=== PATIENT | female | born 2000 | race Caucasian/White ===

== ENCOUNTER 2021-09-23 09:24 | Outpatient (CLI) | payer BC, SELFPAY ==
--- NOTE | 2021-09-23 | ECG_ITS ---
Measurements Intervals [place] Rate: 67 P: 15 TX: 126 QRS: 35 QRSD: 80 T: 44 QT: 384 QTc: 408 Interpretive Statements SINUS RHYTHM WITH SINUS ARRHYTHMIA INCOMPLETE RIGHT BUNDLE BRANCH BLOCK BORDERLINE ECG Electronically Signed On 09-23-2021 10:43:33 CAR LUBRICATOR by Tiago Almendarez D.O.
--- NOTE | 2021-09-23 | ECHO_ITS ---
[facility] Age[facility] 21 years : 2000 Gender: Female Ht: 62 in Wt: 134 lbs BSA: 1.64 m2 HR: 79 bpm BP: 114 / 80 mmHg Heart Rhythm: Sinus Rhythm Exam Date: 09/23/2021 9:57 AM Exam Location: [facility] Patient Status: Outpatient Admit Date: 09/23/2021 Staff Ordering Physician: SantyAna MD Customer Service Correspondence Clerk: Romero Stuart, MICHA, RT Attending Provider: Colby, Ana Littlejohn MD Referring Physician: Santy ARREOLA; Exam Type: CA echo doppler color flow Study Info Indications R07.9 - Chest pain, unspecified Complete two-dimensional, color flow and Doppler transthoracic echocardiogram is performed. Strain analysis performed. Summary 1. Complete two-dimensional, color flow and Doppler transthoracic echocardiogram is performed. 2. Left ventricular chamber size, wall thickness, systolic and diastolic function are normal with no regional wall motion abnormalities with an estimated ejection fraction of 55-60%. 3. Global longitudinal strain is also normal at -19%. 4. No significant valve disease. 5. Normal estimated pulmonary artery pressure. 6. Normal sinus rhythm. Left Ventricle Left ventricular chamber dimension is normal. Left ventricular systolic function is normal, estimated at 55-60%. There is no increased left ventricular wall thickness. Left ventricular septal wall motion is normal. The left ventricular diastolic function is normal. Global longitudinal strain is normal at -19 %. Left ventricular chamber size, wall thickness, systolic and diastolic function are normal with no regional wall motion abnormalities with an estimated ejection fraction of 55-60%. Right Ventricle Right ventricular chamber dimension is normal. Right ventricular systolic function is normal. Left Atria Left atrial chamber dimension is normal. Right Atria Right atrial chamber dimension is normal. Aortic Valve The aortic valve is trileaflet. There is no aortic valve sclerosis. There is no aortic valve stenosis. There is no aortic valve regurgitation. Pulmonic Valve The pulmonic valve is normal. There is no pulmonic valve stenosis. There is no pulmonic regurgitation. Mitral Valve The mitral valve has normal leaflets. There is no mitral valve stenosis. There is no mitral valve regurgitation. Tricuspid Valve The tricuspid valve leaflets are normal. There is no significant tricuspid valve stenosis. There is trace tricuspid valve regurgitation. No pulmonary hypertension, estimated pulmonary arterial systolic pressure is Empty. Pericardium/Pleural The pericardium appears normal. There is no pericardial effusion. Inferior Vena Cava Normal inferior vena cava with >50% collapse upon inspiration consistent with Empty right atrial pressure, 5 mmHg. Aorta The aortic root size at the sinus of Valsalva is normal. The prox ascending aorta size is normal. Left Ventricular Outflow Tract Name Value Normal LVOT 2D LVOT Diameter 2.0 cm LVOT Doppler LVOT Peak Gradient 3 mmHg LVOT Mean Gradient 2 mmHg
== END 2021-09-23 09:25 | disposition home or self-care (01) ==
PROVIDERS: PCP Pediatrics; Visit Provider Internal Medicine
DX: R07.9 Chest pain, unspecified (principal)
CPT/HCPCS: 93005; 93306

== ENCOUNTER 2021-09-30 17:45 | Emergency (ER) | payer BC, SELFPAY ==
[2021-09-30 18:19] VITALS: BP 117/61; PULSE 107; RESP 18; TEMP 37.1; O2SAT 100
--- NOTE | 2021-09-30 19:00 | ED.GENADULT ---
HPI - General Adult General Chief complaint: Upper Respiratory Infection Stated complaint: sorethroat,head congestion,cough Source: patient Mode of arrival: ambulatory Limitations: no limitations History of Present Illness HPI narrative: Patient is a 21-year-old female presents to urgent care via POV for evaluation of upper respiratory symptoms that have been present for approximately 5 days. Additionally, she reports sore throat, sneezing, nonproductive, dry cough, headache, and myalgias. Tylenol improves symptoms. Laying down worsens symptoms. Patient is not vaccinated against Covid or influenza. She denies known exposure to sick contacts. Related Data Home Medications Medication Instructions Recorded Confirmed norgestimate-ethinyl estradiol 1 tablet DAILY 09/30/21 09/30/21 [Sprintec (28)] Allergies Allergy/AdvReac Type Severity Reaction Status Date / Time amoxicillin [From Augmentin] AdvReac Diarrhea Verified 09/30/21 18:40 clavulanic acid AdvReac Diarrhea Verified 09/30/21 18:40 [From Augmentin] Review of Systems Review of Systems: Denies fever, chills, sweats, change in appetite, poor p.o. intake, dizziness, syncope, LOC, sinus pain, sinus pressure, ear pain, drooling, difficulty swallowing, abdominal pain, nausea, vomiting, diarrhea, shortness of breath, wheezing, cyanosis, chest pain, heart palpitations PMFSH Comments I have reviewed and agree with the patient's past medical, surgical, social, and family hx as documented by the RN. There is no relevant family history pertinent to the presenting complaint. Exam Narrative: GENERAL: Well-appearing, well-nourished, and in no acute distress. HEAD: Normocephalic, atraumatic. No sinus tenderness or facial swelling appreciated. EYES: PERRLA and EOMI. No evidence of erythema, swelling, or drainage. ENT: Bilateral external ears and ear canals normal. Bilateral TMs are normal.No TM perforation. Nares clear, no rhinorrhea or epistaxis. Bilateral turbinates are mildly edematous. Mucous membranes moist and pink. Uvula is midline without erythema and swelling. Posterior pharynx is mildly erythematous otherwise normal. Breath odor and voice normal. NECK: Supple. No Lymphadenopathy or nuchal rigidity appreciated. CHEST: Bilateral lung uriarte are clear to auscultation. No respiratory distress. No evidence of cough or pleuritic cp upon examination. HEART: Tachycardia with a rate of 107. Regular rhythm. No murmur, gallop, or rub heard. EXTREMITIES: Normal range of motion. No edema. SKIN: Warm, dry, no rash. NEURO: No focal deficits. Alert and oriented x3. Course Vital Signs Vital signs: Vital Signs Temperature 98.7 F 09/30/21 18:19 Pulse Rate 107 H 09/30/21 18:19 Respiratory Rate 18 09/30/21 18:19 Blood Pressure 117/61 09/30/21 18:19 Pulse Oximetry 100 09/30/21 18:19 Temperature 98.7 F 09/30/21 18:19 Pulse Rate 107 H 09/30/21 18:19 Respiratory Rate 18 09/30/21 18:19 Blood Pressure 117/61 09/30/21 18:19 Pulse Oximetry 100 09/30/21 18:19 Medical Decision Making Differential Diagnosis Differential Diagnosis: Allergic rhinitis, ABRS, acute viral sinusitis, strep pharyngitis, nasopharyngitis, bronchitis, pneumonia, AOM, otitis externa, viral URI, influenza, covid-19 Medical Records Medical records reviewed: Yes I reviewed the external patient's medical records. Vital Signs Vital Signs: Vital Signs Temperature 98.7 F 09/30/21 18:19 Pulse Rate 107 H 09/30/21 18:19 Respiratory Rate 18 09/30/21 18:19 Blood Pressure 117/61 09/30/21 18:19 Pulse Oximetry 100 09/30/21 18:19 Temperature 98.7 F 09/30/21 18:19 Pulse Rate 107 H 09/30/21 18:19 Respiratory Rate 18 09/30/21 18:19 Blood Pressure 117/61 09/30/21 18:19 Pulse Oximetry 100 09/30/21 18:19 Reviewed Lab Data Lab results reviewed: Yes I reviewed the patient's lab results. Lab results narrative: Influenza test negative, rap
== END 2021-09-30 19:28 | disposition home or self-care (01) ==
PROVIDERS: Emergency Provider Nurse Practitioner Family; PCP Internal Medicine
DX: J06.9 Acute upper respiratory infection, unspecified (principal); Z20.822 Contact with and (suspected) exposure to COVID-19
CPT/HCPCS: 87426; 87804; 99213; C9803; G0463

== ENCOUNTER 2021-10-05 08:45 | Emergency (ER) | payer BC, SELFPAY ==
--- NOTE | ~2021-10-05 | XR_ITS ---
EXAMINATION: XR chest 2V DATE: 10/05/2021 09:25 INDICATION: Congestion. TECHNIQUE: Frontal and lateral views of the chest were obtained. COMPARISON: None. FINDINGS: There are airspace opacities in the lower lung zones. No pleural effusion or pneumothorax. The heart size is normal. IMPRESSION: 1. Airspace opacities in the lower lung zones, consistent with atelectasis versus pneumonia. Reviewed, dictated and finalized at location A. INE BOBBIN WINDER IMPRESSION: 1. Airspace opacities in the lower lung zones, consistent with atelectasis vers us pneumonia.
[2021-10-05 08:59] VITALS: BP 119/72; PULSE 96; RESP 16; TEMP 36.9; O2SAT 98
--- NOTE | 2021-10-05 09:08 | ED.URI ---
HPI - URI/Sore Throat General Chief Complaint: Upper Respiratory Infection Stated Complaint: Congestion Time Seen by Provider: 10/05/21 09:08 Source: patient, RN notes reviewed and old records reviewed Mode of arrival: ambulatory Limitations: no limitations Related Data Home Medications Medication Instructions Recorded Confirmed norgestimate-ethinyl estradiol 1 tablet DAILY 09/30/21 10/05/21 [Sprintec (28)] Allergies Allergy/AdvReac Type Severity Reaction Status Date / Time amoxicillin [From Augmentin] AdvReac Diarrhea Verified 10/05/21 09:14 clavulanic acid AdvReac Diarrhea Verified 10/05/21 09:14 [From Augmentin] Review of Systems Review of Systems: All systems reviewed & are unremarkable except as noted in HPI and below Constitutional: Constitutional: Reports as per HPI, Denies chills, Reports fatigue and Denies fever(s) Eyes: Eyes: Reports no additional eye complaints ENT: Reports as per HPI, Denies nasal congestion and Reports sore throat Cardiovascular: Cardiovascular: Reports no additional cardiovascular complaints, Denies chest pain, Denies rapid heart rate, Denies radiating jaw, neck or arm pain and Denies slow heart rate Respiratory: Respiratory: Reports as per HPI, Denies chest congestion, Reports cough, Denies dyspnea and Denies wheezing Gastrointestinal: Gastrointestinal: Reports no additional gastrointestinal complaints, Denies abdominal pain, Denies nausea and Denies vomiting Musculoskeletal: Musculoskeletal: Reports no additional musculoskeletal complaints Integumentary/Breasts: Skin/Breast: Reports system reviewed and no additional complaints, except as docu Neurologic: Reports system reviewed and no additional complaints, except as documented Psychiatric: Psychiatric: Reports no additional psychiatric complaints Allergic/Immunologic: Allergic/Immunologic: Reports no additional allergic/immunologic complaints [facility] Past Medical History Medical History (Updated 10/05/21 @ 09:45 by Tracy Tubbs) Patient denies medical problems Surgical History Surgical History (Updated 10/05/21 @ 09:13 by Tracy Tubbs) No significant past surgical history Social History Social History (Updated 10/05/21 @ 09:14 by Tracy Tubbs) Gender identity (if verbalized by the patient): Female Comments At the time of my signature, I reviewed and agree with the nursing past medical, surgical, social, and family history. There is no relevant family history pertinent to the patient complaint. Exam Const: General: healthy appearing, no acute distress and alert Nutritional Appearance: well nourished Orientation/consciousness: patient oriented x3 Limitations: no limitations HENMT: Head: normal to inspection Eyes: Conjunctivae: conjunctivae normal Pupils: Equal, round and reactive pupils present Neck: Neck: normal visual inspection, no lymphadenopathy and no meningeal signs Chest: Chest palpation & inspection: normal inspection of the chest Resp: Effort & Inspection: normal respiratory effort Auscultation: diminished lung sounds bilateral in the lower lung uriarte Cardio: Rate: regular rate Rhythm: regular rhythm Back/Spine/Pelvis: Back: no CVA tenderness Skin: General skin exam: normal color Rashes: no rashes Wounds: no wounds Neuro: General: patient oriented x3, moves all extremities, no meningeal signs and no focal motor deficits Speech: normal speech Gait exam (Neuro): Normal gait present Extrem: General: normal to inspection Psych: Appearance: grossly normal and well kempt Mental Status: mental status grossly normal Affect: normal affect Attitude: cooperative Thought content: Yes Normal thought content present Course Course Emergency Course: Discharge instructions reviewed with patient, as well as provided in writing per nursing staff. The instructions also include specific and strict return/GO TO THE ER as well as f/u information. All questions have been answere
== END 2021-10-05 09:50 | disposition home or self-care (01) ==
PROVIDERS: Emergency Provider Nurse Practitioner; PCP Internal Medicine
DX: J18.1 Lobar pneumonia, unspecified organism (principal)
CPT/HCPCS: 71046; 99213; G0463

== ENCOUNTER 2022-10-28 17:13 | Emergency (ER) | payer BC, SELFPAY ==
--- NOTE | 2022-10-28 17:17 | ED.GENADULT ---
HPI - General Adult General Chief complaint: Abdominal Pain Stated complaint: abdominal pain Time Seen by Provider: 10/28/22 17:20 Source: patient, RN notes reviewed and old records reviewed Mode of arrival: ambulatory Limitations: no limitations History of Present Illness HPI narrative: 22-year-old female presents to the [facility] with complaints of abdominal pain. Patient reports that 2 days ago started with generalized abdominal pain, has localized to the suprapubic, right lower quadrant, periumbilical. Denies fevers. Has had nausea and vomited 1 time today. Denies fevers and diarrhea. denies urinary symptoms no treatment prior to arrival no CVA tenderness MD complaint: abdominal pain Onset (ago): day(s) (2) Related Data Home Medications Medication Instructions Recorded Confirmed norgestimate 0.25 mg-ethinyl 1 tablet DAILY 09/30/21 10/05/21 estradiol 35 mcg tablet (Sprintec (28)) Allergies Allergy/AdvReac Type Severity Reaction Status Date / Time amoxicillin [From Augmentin] AdvReac Diarrhea Verified 10/05/21 09:14 clavulanic acid AdvReac Diarrhea Verified 10/05/21 09:14 [From Augmentin] Review of Systems Review of Systems: All systems reviewed & are unremarkable except as noted in HPI and below Constitutional: Constitutional: Reports no additional constitutional complaints Eyes: Eyes: Reports no additional eye complaints ENT: Reports system reviewed and no additional complaints, except as documented Cardiovascular: Cardiovascular: Reports no additional cardiovascular complaints, Denies chest pain and Denies dyspnea Respiratory: Respiratory: Reports no additional respiratory complaints, Denies chest congestion, Denies cough and Denies dyspnea Gastrointestinal: Gastrointestinal: Reports as per HPI, Reports abdominal pain, Denies diarrhea, Reports nausea and Reports vomiting Genitourinary: Genitourinary: Reports no additional female genitourinary complaints, Denies dysuria, Denies pelvic pain and Denies flank pain Musculoskeletal: Musculoskeletal: Reports no additional musculoskeletal complaints Integumentary/Breasts: Skin/Breast: Reports system reviewed and no additional complaints, except as docu Neurologic: Reports system reviewed and no additional complaints, except as documented Psychiatric: Psychiatric: Reports no additional psychiatric complaints Allergic/Immunologic: Allergic/Immunologic: Reports no additional allergic/immunologic complaints PMFSH Past Medical History Medical History Patient denies medical problems Surgical History Surgical History No significant past surgical history Social History Social History Gender identity (if verbalized by the patient): Female Comments At the time of my signature, I reviewed and agree with the nursing past medical, surgical, social, and family history. There is no relevant family history pertinent to the patient complaint. Exam Const: General: cooperative, healthy appearing, comfortable, no acute distress, well developed, alert and well nourished Nutritional Appearance: well nourished Orientation/consciousness: patient oriented x3 Limitations: no limitations HENMT: Head: normal to inspection Ears: hearing grossly normal bilaterally and external ears normal Face/Nose/Sinus: Normal external nose present, Normal nares present, Normal nasal mucous membranes and turbinates present and normal facial exam Face and sinus: normal facial exam Mouth: Yes Normal oral and palatal mucosa present, Yes lip normal and Yes moist mucous membranes Throat: posterior oropharynx normal and uvula midline Eyes: General: appearance normal, both eyes and all related structures Alignment and Position: alignment normal Periorbital: periorbital findings normal Conjunctivae: conjuncti
[2022-10-28 17:24] VITALS: BP 125/58; PULSE 103; RESP 18; TEMP 36.3; O2SAT 100
== END 2022-10-28 17:37 | disposition short-term general hospital (02) ==
PROVIDERS: Emergency Provider Nurse Practitioner; PCP Internal Medicine
DX: R10.31 Right lower quadrant pain (principal)
CPT/HCPCS: 99212; G0463

== ENCOUNTER 2022-10-28 17:52 | Observation (INO) | payer BC, SELFPAY ==
--- NOTE | ~2022-10-28 | CT_ITS ---
EXAMINATION: CT abdomen pelvis w con DATE: 10/28/2022 21:07 INDICATION: Right lower quadrant pain TECHNIQUE: Computed tomography (CT) of the abdomen and pelvis was performed with 100 cc Omnipaque 350 intravenous contrast. The dose-length product was 227.02 mGy-cm. Automated exposure control and iter ative reconstruction technique were employed. COMPARISON: None. FINDINGS: Lung bases are unremarkable. Heart size normal. No significant pleural or pericardial effus ion. The appendix is mildly thickened and enhancing measuring 7 mm. No significant surrounding inflam mation. The liver, spleen, pancreas, adrenal glands and kidneys are unremarkable. Nonobstructive bowel gas pa ttern. Small amount of free fluid in the pelvis. No significant vascular abnormality. No lymphadenopa thy. Gallbladder is present. No free air. No acute osseous abnormality. Punctate focus of gas in the bladder which may be due to recent instrumentation. IMPRESSION: 1. Mildly thickened enhancing appendix measuring 7 mm, suspicious although inconclusive for appendici tis. Reviewed, dictated and finalized at location A. ENT CLERICAL ASSISTANT IMPRESSION: 1. Mildly thickened enhancing appendix measuring 7 mm, suspicious although inco nclusive for appendicitis.
[2022-10-28 18:08] VITALS: BP 137/78; PULSE 98; RESP 14; TEMP 37; O2SAT 100
[2022-10-28 18:42] LABS: Basophils Absolute Auto 0.1 K/mm3 (0.0-0.1); Basophils Percent Auto 0.7 % (0.2-1.2); Eosinophils Absolute Auto 0.1 K/mm3 (0-0.3); Eosinophils Percent Auto 0.7 % (0-4.4); Hematocrit 34.8 % (37.0-47.0); Hemoglobin 11.4 g/dL (12.0-15.0); Immature Granulocyte Absolute 0.04 K/mm3 (0.00-0.031); Immature Granulocyte Percent A 0.3 % (0-0.5); Lymphocytes Absolute Auto 2.58 K/mm3 (0.9-3.2); Lymphocytes Percent Auto 19.8 % (18.3-44.2); Mean Corpuscular HGB Conc 32.8 g/dl (32-36); Mean Corpuscular Hemoglobin 29.4 pg (26-34); Mean Corpuscular Volume 89.7 fl (80-100); Mean Platelet Volume 9.7 fl (7.4-10.4); Monocytes Absolute Auto 1.1 K/mm3 (0.1-0.6); Monocytes Percent Auto 8.4 % (2.6-8.5); Neutrophils Absolute Auto 9.1 K/mm3 (1.3-6.7); Neutrophils Percent Auto 70.1 % (45.5-73.1); Platelet Count Result 249 k/mm3 (150-375); Red Blood Count 3.88 M/mm3 (4.2-5.4); Red Cell Distribution Width 12.5 % (11.5-14.5)
[2022-10-28 18:43] LABS: Appearance Urine Clear (Clear); Bilirubin Urine Negative (Negative); Blood Urine Trace-intact (Negative); Color Urine Yellow (Yellow); Glucose Urine UA Negative (Negative); Ketones Urine Trace mg/dL (Negative); Leukocyte Esterase Ur Trace LEU/UL (Negative); Nitrate Urine Negative (Negative); Protein Urine Negative (Negative); Urobilinogen Urine 0.2 mg/dL (<2.0)
[2022-10-28 18:50] LABS: Alanine Aminotransferase 17 U/L (6-35); Albumin Level 4.1 g/dL (3.5-5.1); Alkaline Phosphatase 57 U/L (38-126); Anion Gap 6 mmol/L (8-16); Aspartate Amino Transferase 21 U/L (14-36); Bilirubin,Total 0.6 mg/dL (0.2-1.3); Blood Urea Nitrogen 9 mg/dL (7-17); Calcium 9.2 mg/dL (8.4-10.2); Carbon Dioxide 28 mmol/L (22-30); Chloride 102 mmol/L (98-107); Estimated CRCL calculation 87 ml/min; Estimated Glomerular Filt Rate > 60; Glucose 85 mg/dL (65-110); Lipase 55 U/L (23-300); Potassium 3.9 mmol/L (3.4-5.0); Sodium 136 mmol/L (137-145)
[2022-10-28 18:57] LABS: Bacteria Urine Trace /hpf; Mucus Urine Few /lpf; RBC Urine 0-2 /hpf (0-2); Squamous Epithelial Cell Urine Moderate /hpf (Few); WBC Urine 0-3 /hpf
[2022-10-28 19:00] LABS: Add Urine Microscopic? YES
[2022-10-28 20:12] VITALS: BP 120/72; PULSE 88; RESP 17; TEMP 36.4; O2SAT 100
[2022-10-28 20:55] LABS: Pregnancy On Board Control Positive; Urine Pregnancy Test Negative
--- NOTE | 2022-10-28 22:03 | ED.ABDPAIN ---
HPI - Abdominal Pain General Chief Complaint: Abdominal Pain Stated Complaint: abd pain Time Seen by Provider: 10/28/22 20:29 Source: patient Mode of arrival: ambulatory Limitations: no limitations History of Present Illness HPI narrative: 22-year-old otherwise healthy here with complaints of right lower quadrant pain for past 2 days was seen earlier at urgent care and was later referred here to the ER. Patient denies any fever or chills has a remote history of ovarian cyst as a teenager Related Data Home Medications Medication Instructions Recorded Confirmed norgestimate 0.25 mg-ethinyl 1 tablet DAILY 09/30/21 10/28/22 estradiol 35 mcg tablet (Sprintec (28)) Allergies Allergy/AdvReac Type Severity Reaction Status Date / Time amoxicillin [From Augmentin] AdvReac Diarrhea Verified 10/05/21 09:14 clavulanic acid AdvReac Diarrhea Verified 10/05/21 09:14 [From Augmentin] Review of Systems Review of Systems: All systems reviewed & are unremarkable except as noted in HPI and below Constitutional: Constitutional: Reports no additional constitutional complaints Eyes: Eyes: Reports no additional eye complaints ENT: Reports system reviewed and no additional complaints, except as documented Cardiovascular: Cardiovascular: Reports no additional cardiovascular complaints Respiratory: Respiratory: Reports no additional respiratory complaints Gastrointestinal: Gastrointestinal: Reports as per HPI Musculoskeletal: Musculoskeletal: Reports no additional musculoskeletal complaints PMFSH Past Medical History Medical History Patient denies medical problems Surgical History Surgical History No significant past surgical history Social History Social History Gender identity (if verbalized by the patient): Female Exam Narrative: GENERAL: Well-appearing, well-nourished, and in no acute distress. HEAD: Normocephalic, atraumatic. EYES: PERRLA and EOMI. NECK: Supple. CHEST: Clear to auscultation. No respiratory distress. HEART: Regular rate and rhythm. No murmur heard. Normal peripheral pulses. ABDOMEN: Soft, mild tenderness in the right lower quadrant , nondistended, normal active bowel sounds. EXTREMITIES: Normal range of motion. No edema. SKIN: Warm, dry, no rash. NEURO: No focal deficits. Alert and oriented x3. PSYCH: Normal mood and affect. Course Course Emergency Course: 22-year-old presented with right lower quadrant pain, CT of the abdomen and lab work was done WBC count was 13 CT scan shows early possible appendicitis started on IV Zosyn, consulted general surgery agreed with admission Vital Signs Vital signs: Vital Signs Temperature 37.0 C 10/28/22 18:08 Pulse Rate 98 10/28/22 18:08 Respiratory Rate 14 10/28/22 18:08 Blood Pressure 137/78 10/28/22 18:08 Pulse Oximetry 100 10/28/22 18:08 Oxygen Delivery Room Air 10/28/22 18:08 Temperature 36.4 C 10/28/22 20:12 Pulse Rate 88 10/28/22 20:12 Respiratory Rate 17 10/28/22 20:12 Blood Pressure 120/72 10/28/22 20:12 Pulse Oximetry 100 10/28/22 20:12 Oxygen Delivery Room Air 10/28/22 18:08 MDM - Abdominal Pain MDM Narrative Medical decision making narrative: 22-year-old with a 2-day history of right lower quadrant pain tender on palpation will do CT of the abdomen and lab work patient presently declined any pain medication she has no fever. We will start on IV Zosyn consult surgery. Differential Diagnosis Differential diagnosis: Likely acute appendicitis, diverticulitis and gastroenteritis Lab Data 10/28/22 18:31 10/28/22 18:31 Labs: Lab Results 10/28/22 10/28/22 10/28/22 Range/Units 18:31 18:31 18:31 WBC 13.0 H (4.5-10.0) K/mm3 RBC 3.88 L (4.2-5.4) M/mm3 Hgb 11.4 L (12.0-15.0) g/
[2022-10-28 22:18] LABS: Influenza A QL RT-PCR Negative (Negative); Influenza B QL RT-PCR Negative (Negative); RSV RNA, RT-PCR Negative (Negative); SARS-CoV-2 RNA PCR Negative
[2022-10-28 23:01] VITALS: BP 121/72; PULSE 95; RESP 16; O2SAT 100
[2022-10-28] MEDS: MORPHINE SULFATE (*CRX) 4 MG/ML INJ IV PUSH (23:04)
[2022-10-28 23:26] VITALS: BMI 23.2
--- NOTE | 2022-10-28 23:38 | ADMGEN ---
[facility] Surg Room 309-01. Patient/family oriented to hospital policies and general routines including ID bracelet, bed and alarms, visiting hours, pain management, procedures, bathroom and other care routines, personal items, smoking policy, room service/diet, and visiting hours. Information on how to activate the Rapid Response Team has been discussed. Patient/Family are encouraged to report perceived risks to care and to ask questions if they do not understand what they are told or what they should do.
[2022-10-28] MEDS: SODIUM CHLORIDE 0.9% IV 1,000 ML 125 ML IV CONT (23:56)
[2022-10-29] VITALS (12 sets, daily range): BP systolic 104–144; BP diastolic 61–87; PULSE 66–107; RESP 12–19; TEMP 36.3–36.7; O2SAT 94–100
[2022-10-29] MEDS: MORPHINE SULFATE (*CRX) 4 MG/ML INJ IV PUSH ×3 (04:59→16:43)
[2022-10-29 06:41] LABS: Basophils Absolute Auto 0.1 K/mm3 (0.0-0.1); Basophils Percent Auto 0.6 % (0.2-1.2); Eosinophils Absolute Auto 0.1 K/mm3 (0-0.3); Eosinophils Percent Auto 0.9 % (0-4.4); Hematocrit 33.2 % (37.0-47.0); Hemoglobin 10.7 g/dL (12.0-15.0); Immature Granulocyte Absolute 0.01 K/mm3 (0.00-0.031); Immature Granulocyte Percent A 0.1 % (0-0.5); Lymphocytes Absolute Auto 2.44 K/mm3 (0.9-3.2); Mean Corpuscular HGB Conc 32.2 g/dl (32-36); Mean Corpuscular Hemoglobin 29.7 pg (26-34); Mean Corpuscular Volume 92.2 fl (80-100); Mean Platelet Volume 9.7 fl (7.4-10.4); Monocytes Absolute Auto 0.6 K/mm3 (0.1-0.6); Monocytes Percent Auto 7.9 % (2.6-8.5); Neutrophils Absolute Auto 4.7 K/mm3 (1.3-6.7); Neutrophils Percent Auto 59.5 % (45.5-73.1); Platelet Count Result 202 k/mm3 (150-375); Red Cell Distribution Width 12.6 % (11.5-14.5); White Blood Count 7.9 K/mm3 (4.5-10.0)
[2022-10-29 06:51] LABS: Anion Gap 4 mmol/L (8-16); Blood Urea Nitrogen 6 mg/dL (7-17); Calcium 8.2 mg/dL (8.4-10.2); Carbon Dioxide 26 mmol/L (22-30); Chloride 103 mmol/L (98-107); Estimated CRCL calculation 77 ml/min; Estimated Glomerular Filt Rate > 60; Glucose 85 mg/dL (65-110); Potassium 3.5 mmol/L (3.4-5.0); Sodium 133 mmol/L (137-145)
[2022-10-29] MEDS: SODIUM CHLORIDE 0.9% IV 1,000 ML 125 ML IV CONT (09:29)
[2022-10-29] MEDS: LACTATED RINGERS 1,000 ML 30 ML IV CONT ×2 (13:20→15:00)
--- NOTE | 2022-10-29 13:25 | PM.IMHP ---
H&P: HPI History of Present Illness Date/Time: 10/29/22 13:25 Chief Complaint: Acute appendicitis Narrative: The patient is a 22-year-old female presenting to the emergency department complaining of right lower quadrant abdominal pain. The patient reports the pain has been present the last couple of days, however recently localized to the right lower quadrant and became more severe. The patient reports associated anorexia and nausea. The patient denies any fevers or chills, emesis, changes in bowel habits. Patient denies any previous episodes. Workup in the emergency department, including CT scan, was significant for early acute appendicitis. Review of Systems Constitutional: Constitutional: Reports as per HPI, Reports anorexia, Denies chills, Denies fatigue, Denies fever(s), Reports poor appetite, Denies weakness, Denies weight gain and Denies weight loss Eyes: Eyes: Reports no additional eye complaints ENT: Reports system reviewed and no additional complaints, except as documented Cardiovascular: Cardiovascular: Reports no additional cardiovascular complaints Respiratory: Respiratory: Reports no additional respiratory complaints Gastrointestinal: Gastrointestinal: Reports as per HPI, Reports abdominal pain, Denies bloating, Reports GI cramping, Denies diarrhea, Denies loose stools, Reports nausea and Denies vomiting Genitourinary: Genitourinary: Reports no additional female genitourinary complaints Musculoskeletal: Musculoskeletal: Reports no additional musculoskeletal complaints Integumentary/Breasts: Skin/Breast: Reports system reviewed and no additional complaints, except as docu Neurologic: Reports system reviewed and no additional complaints, except as documented Psychiatric: Psychiatric: Reports no additional psychiatric complaints Endocrine: Endocrine: Reports no additional endocrine complaints Hematologic/Lymphatic: Hematologic/Lymphatic: Reports no additional hematologic/lymphatic complaints Allergic/Immunologic: Allergic/Immunologic: Reports no additional allergic/immunologic complaints PENDING SALE TO [facility] Past Medical History Medical History Patient denies medical problems Surgical History Surgical History No significant past surgical history Family History Family History Grandparent Diabetes mellitus Mother Multiple sclerosis Coronary artery disease Social History Social History Smoking status: Never smoker Second hand tobacco smoke exposure: Yes Alcohol intake: never Substance use: never Lack of Transportation: No Lack of Food: Never True Current Housing: I Have Housing Concerned About Future Housing: No Difficulty Paying Gas/Electric Bills: No Difficulty Paying for Meds: No Currently Unemployed: No Education: High School Diploma/GED Difficulty w/ Childcare or Family Care: No Gender identity (if verbalized by the patient): Female Spiritual care concerns: No Meds Home Medications and Allergies Home Medications Medication Instructions Recorded Confirmed Type norgestimate 0.25 mg-ethinyl 1 tablet DAILY 09/30/21 10/28/22 History estradiol 35 mcg tablet (Sprintec (28)) Allergies Allergy/AdvReac Type Severity Reaction Status Date / Time amoxicillin [From Augmentin] AdvReac Diarrhea Verified 10/05/21 09:14 clavulanic acid AdvReac Diarrhea Verified 10/05/21 09:14 [From Augmentin] Vital Signs Vital Signs - 24 hr 10/28/22 18:08 10/28/22 20:12 10/28/22 23:01 Temperature 37.0 C 36.4 C Pulse Rate 98 88 95 Respiratory Rate 14 17 16 Blood Pressure 137/78 120/72 121/72 Pulse Oximetry 100 100 100 Oxygen Delivery Room Air 10/29/22 06:00 10/29/22 08:30 Temperature 36.5 C Pulse Rate 95 Respiratory Rate 18 Blood Pressur
--- NOTE | 2022-10-29 13:27 | WPDANESEPPF ---
Anes - Initial Pre Proc Eval Procedure: Operation Date: 10/29/22 17:00 Proposed Procedures p Laparoscopic Appendectomy - Shonna Eng MD Date/Time: 10/29/22 13:27 Surgeon: Shonna Eng MD Pre Op Diagnosis: Acute Appendicitis Patient Data Age: 22 Gender: F Height: 1.57 m Weight: 57.6 kg Last Vital Signs Temp 36.5 C 10/29/22 06:00 Pulse 95 10/29/22 06:00 Resp 18 10/29/22 06:00 BP 110/66 10/29/22 06:00 Pulse Ox 99 10/29/22 06:00 O2 Del Method Room Air 10/29/22 08:30 Allergies Allergy/AdvReac Type Severity Reaction Status Date / Time amoxicillin [From Augmentin] AdvReac Diarrhea Verified 10/05/21 09:14 clavulanic acid AdvReac Diarrhea Verified 10/05/21 09:14 [From Augmentin] Home Medications Medication Instructions Recorded Confirmed Type norgestimate 0.25 mg-ethinyl 1 tablet DAILY 09/30/21 10/28/22 History estradiol 35 mcg tablet (Sprintec (28)) Laboratory Tests 10/28/22 10/28/22 10/28/22 18:31 18:31 18:31 WBC 13.0 K/mm3 H K/mm3 (4.5-10.0) RBC 3.88 M/mm3 L M/mm3 (4.2-5.4) Hgb 11.4 g/dL L g/dL (12.0-15.0) Hct 34.8 % L % (37.0-47.0) MCV 89.7 fl fl (80-100) MCH 29.4 pg pg (26-34) MCHC 32.8 g/dl g/dl (32-36) RDW 12.5 % % (11.5-14.5) Plt Count 249 k/mm3 k/mm3 (150-375) MPV 9.7 fl fl (7.4-10.4) Immature Gran % (Auto) 0.3 % % (0-0.5) Neut % (Auto) 70.1 % % (45.5-73.1) Lymph % (Auto) 19.8 % % (18.3-44.2) [place] % (Auto) 8.4 % % (2.6-8.5) Eos % (Auto) 0.7 % % (0-4.4) Baso % (Auto) 0.7 % % (0.2-1.2) Lymph # (Auto) 2.58 K/mm3 K/mm3 (0.9-3.2) [place] # (Auto) 1.1 K/mm3 H K/mm3 (0.1-0.6) Eos # (Auto) 0.1 K/mm3 K/mm3 (0-0.3) Baso # (Auto) 0.1 K/mm3 K/mm3 (0.0-0.1) Abs Immat Gran (auto) 0.04 K/mm3 H K/mm3 (0.00-0.031) Absolute Neuts (auto) 9.1 K/mm3 H K/mm3 (1.3-6.7) Absolute Nucleated RBC 0.0 K/mm3 K/mm3 (0.0-0.012) Nucleated RBC % 0.0 % % (0.0-0.2) Sodium 136 mmol/L L mmol/L (137-145) Potassium 3.9 mmol/L mmol/L (3.4-5.0) Chloride 102 mmol/L mmol/L (98-107) Carbon Dioxide 28 mmol/L mmol/L (22-30) Anion Gap 6 mmol/L L mmol/L (8-16) BUN 9 mg/dL mg/dL (7-17) Creatinine 0.70 mg/dL mg/dL (0.7-1.0) Estim Creat Clear Calc 87 ml/min ml/min Estimated GFR > 60 (59 - ) Glucose 85 mg/dL mg/dL (65-110) Calcium 9.2 mg/dL mg/dL (8.4-10.2) Total Bilirubin 0.6 mg/dL mg/dL (0.2-1.3) AST 21 U/L U/L (14-36) ALT 17 U/L U/L (6-35) Alkaline Phosphatase 57 U/L U/L (38-126) Total Protein 7.0 g/dL g/dL (6.3-8.2) Albumin 4.1 g/dL g/dL (3.5-5.1) Lipase 55 U/L U/L (23-300) Urine Color Yellow (Yellow) Urine Appearance Clear (Clear) Urine pH 7.0 (5.0-9.0) Ur Specific [place] 1.020 (1.001-1.035) Urine Protein Negative mg/dL mg/dL (Negative) Urine Glucose (UA) Negative mg/dL mg/dL (Negative) Urine Ketones Trace mg/dL mg/dL (Negative) Ur Blood (Man) Trace-intact (Negative) Urine Nitrate Negative (Negative) Urine Bilirubin Negative (Negative) Urine Urobilinogen 0.2 mg/dL mg/dL (<2.0) Leukocyte Esterase Rfl Trace RADHA/UL H RADHA/UL (Negative) Urine RBC 0-2 /hpf /hpf (0-2) Urine WBC 0-3 /hpf /hpf Ur Squamous Epith Cells Moderate /hpf H /hpf (Few) Urine Bacteria Trace /hpf /hpf Urine Mucus Few /lpf H /lpf Urine Test Influenza A (RT-PCR) Influenza B (RT-PCR) RSV (R
--- NOTE | 2022-10-29 13:29 | WPDHPUPDATE1 ---
History and Physical Update Update Date/Time: 10/29/22 13:29 History and Physical has been reviewed, including an updated exam of the patient. There are NO changes in the patient's condition. Risks, benefits, and alternatives have been discussed and questions answered. Patient agrees to proceed with procedure.
[2022-10-29] MEDS: ceFAZolin 2 GM/D5W 50 ML 2 GM/50 ML BAG IVPB (13:39)
[2022-10-29] MEDS: BUPIVACAINE/EPINEPHRINE 0.5% 30 ML VIAL INFILTRATE (13:56)
--- NOTE | 2022-10-29 14:20 | W.PM.PROC2 ---
Procedure Note - Detailed Date of Procedure 10/29/22 Pre-op Diagnosis Acute Appendicitis Post-op Diagnosis Same Procedure Performed laparoscopic appendectomy Surgeon Shonna Eng MD Anesthesia General Indications 22-year-old female presenting to the emergency department with acute appendicitis Findings acute appendicitis no evidence of perforation Description of Procedure The patient was taken to the operating room and placed in the supine position. After adequate induction of general anesthesia, the patient was prepped and draped in the normal sterile fashion. A time-out was then done to verify the patient's identity, as well as the procedure being performed. I began by making a 5 mm incision in the infraumbilical region, through this a Veress needle was placed in the peritoneal cavity. CO2 gas was then insufflated and after adequate pneumoperitoneum was achieved the Veress needle was removed. Then placed a 5 mm Optiview trocar under direct visualization into the peritoneal cavity. I then insufflated through this trocar site and the endoscope was placed into the trocar. Under direct visualization, placed 2 further 5 mm suprapubic port as well as an additional 12 mm port in the left lower abdomen. At this point identified the cecum, I retracted the cecum both medially and superiorly allowing me to expose the appendix. The appendix was noted to be moderately dilated and inflamed. The appendix was noted to be adherent to the right lateral sidewall as well as the ileum. I was able to bluntly dissect the appendix from these adhesions. I then was able to locate the base of the appendix with the cecum. I created a window with the [place] dissector between the appendix itself and the mesoappendix. I then transected the mesoappendix with a white vascular staple load. The Endo-MIESHA was then reloaded with a blue staple load and I transected the base of the appendix. Once the specimen was completely detached, an endo-pouch was placed into the 12 mm port site and the specimen was removed through the endo-pouch. The appendiceal specimen will be sent to pathology for further review. I then copiously irrigated the right lower quadrant. Hemostasis was noted at both staple lines no other pathology was seen in this area. I then moved the camera to the suprapubic port to check our its port of entry. No iatrogenic injury or other pathology was noted in the upper abdomen. I then closed the 12 mm port site with a Sandeep code and 0 Vicryl suture under direct visualization. At this point, the abdomen was desufflated and all ports were removed. All port sites were closed with 4 Monocryl subcuticular suture. Dermabond was placed on all wounds. The patient tolerated the procedure well and was extubated in the operating room postop. He will be sent to the recovery room in stable condition. Estimated Blood Loss 5 Drains No Packing No Pathology Yes Complications No immediate complications Condition Stable Disposition PACU [facility] Billing Surgery - Charge Forward: Surgery Billing
[2022-10-29] MEDS: fentaNYL CITRATE INJ (*CRX) 100 MCG/2 ML VIAL 25 MCG IV PUSH ×8 (14:44→16:04)
--- NOTE | 2022-10-30 00:45 | PC.NURSE ---
Pt is resting in bed at this time. Pt has been up and ambulatory since returning from surgery. Pt has had some discomfort and was given IV tylenol. Pt responded well. Pt participated and contributed in plan of care. Pt expresses no other needs at this time. Will continue to monitor pt.
[2022-10-30] MEDS: HYDROcodone/acetaminophen (*CRX) 5-325 MG TABLET 1 TAB PO (03:58)
[2022-10-30 04:00] VITALS: BP 106/61; PULSE 84; RESP 18; TEMP 36.2; O2SAT 99
[2022-10-30 08:00] VITALS: BP 105/60; PULSE 65; RESP 14; TEMP 36.4; O2SAT 99
--- NOTE | 2022-10-30 13:14 | PM.DS ---
DS: Admitting Diagnosis Discharge Date 10/30/22 Admitting Diagnosis Acute appendicitis DS: Discharge Diagnosis Discharge Diagnosis (1) Acute appendicitis: Qualifiers: Acute appendicitis type: unspecified acute appendicitis type Qualified Code(s): K35.80 - Unspecified acute appendicitis Code(s): K35.80 - Unspecified acute appendicitis Status: Acute Assessment and Plan: status post lap appy, continue routine postoperative care, home with p.o. analgesia and Colace, follow-up with Dr. Eng in 2 weeks DS: Summary Hospital Course Reason for hospitalization: acute appendicitis Hospital Course: The patient is a 22-year-old female presenting to the emergency department complaining of severe right lower quadrant abdominal pain. Workup in the emergency department, including imaging, was significant for acute appendicitis. The patient was subsequently admitted to the surgical service and started on IV antibiotics. Upon evaluation, decision was made for urgent appendectomy. Patient was taken to the operating room and laparoscopic appendectomy was performed, please see full operative report for details of procedure. Postoperatively, the patient did well and was transferred to the surgical floor. She did report some incisional soreness and nausea. On postoperative day 1. , she reports that the symptoms had largely improved and she was able to tolerate a regular diet for breakfast. The patient will be discharged home with p.o. analgesia and Colace. She will follow-up with me in 2 weeks. Status at Discharge Functional status at discharge: independent ambulation Overall status at discharge: patient is progressing back to baseline Time Spent with Patient Time attestation: Total time spent providing and/or coordinating discharge services: Time spent: Less than 30 minutes Exam Const: General: cooperative, healthy appearing, comfortable and no acute distress Resp: Auscultation: clear to auscultation bilaterally Cardio: Rate: regular rate Rhythm: regular rhythm GI: Inspection: normal to inspection, non-distended and incision GI Palp: Yes abdominal tenderness, Yes Soft to palpation, Yes Tenderness to palpation present (GI), No Guarding due to palpation present (GI) and No Rigid due to palpation DS: Data Data Completed and Pending Pending studies at discharge: Pending at discharge 10/29/22 13:49 Surgical [PTH] Routine Discharge Plan Discharge Attending physician on discharge: Shonna Eng Discharging Clinician: Shonna Eng Anticipated Discharge Date/Time: 10/29/22 18:00 Patient Disposition: Home, Self-Care Activity: may shower and other - see discharge instructions Diet: as tolerated Wound Care Instructions: incision open to air Discharge Instructions: DISCHARGE INSTRUCTION SHEET FOR HERNIA, GALLBLADDER AND APPENDIX SURGERIES DR. ENG PATIENT TO TAKE HOME 1. May shower in 24 hours, no soaking in bath x 2weeks. 2. Call office for: Wound increasingly painful or bleeding Vomiting Fever of greater than 101 degrees 3. If no bowel movement for three days, take 1 oz. (30 ml) Milk of Magnesia or MiraLax 17g 1 to 2 times daily. 4. No heavy lifting > 10-15 pounds x 6 weeks for hernia repairs and 2 weeks for laparoscopic cholecystectomy or appendectomy. 5. No driving for 3 days or while taking narcotic pain medications. 6. Ice to surgical site for 48 hours (30 min on, then 30 min off). 7. Up walking 10-30 minutes three times per day. 8. Resume previous home medications. 9. Follow-up 10-14 days in office for wound check or as previously scheduled. ([id number]) 10. Oral pain medications prescription to be sent to pharmacy. Take Tylenol 500mg every 6 hours and Ibuprofen 600mg every 6 hours for the first 2 days, then as needed. 11. NUTRITION: Start out by drinking fluids and increase your di
== END 2022-10-30 10:55 | disposition home or self-care (01) ==
LOC: ANHED 22:11 → ANH3MEDSUR 10-29 07:44
PROVIDERS: Emergency Medicine; Admitting Provider Surgery; Emergency Provider Family Medicine; PCP Internal Medicine; Visit Provider Surgery
PROC: 0DTJ4ZZ Resection of Appendix, Percutaneous Endoscopic Approach (ICD-10-PCS; CPT 44970; principal; 2022-10-29 17:00)
DX: K35.80 Unspecified acute appendicitis (principal); Z20.822 Contact with and (suspected) exposure to COVID-19
CPT/HCPCS: 44970; 36415; 74177; 80048; 80053; 81001; 81025; 83690; 85025; 87637; 88304; 96361; 96365; 96367; 96375; 96376; 99285; A9270; G0378; J0131; J0690; J1100; J2250; J2270; J2405; J2543; J2704; J3010; J7030; J7120; Q9967

== ENCOUNTER 2024-10-31 09:03 | Emergency (ER) | payer OTHER, SELFPAY ==
[2024-10-31 09:20] VITALS: BP 118/65; PULSE 104; RESP 16; TEMP 37; O2SAT 99
--- NOTE | 2024-10-31 09:21 | ED_ITS ---
HPI - URI/Sore Throat General Chief Complaint: Upper Respiratory Infection Stated Complaint: Sinus Infection Time Seen by Provider: 10/31/24 09:33 Source: patient, RN notes reviewed and old records reviewed Mode of arrival: ambulatory Limitations: no limitations History of Present Illness HPI Narrative: patient presents with complaints of 2 weeks of sinus pain and pressure. She reports associated cough, lack of energy, headache, ear pressure. She has been taking multiple xwqs-qmm-gdyoqzk medications, states that she was getting some relief until just a few days ago. She denies any fever, chills, sweats. She denies any injury or trauma. No other concerns or complaints today Related Data Home Medications ?Medication ?Instructions ?Recorded ?Confirmed ?Last Taken ?Type norelgestromin 150 mcg-e.estradiol 1 patch transdermal WEEKLY 11/16/22 11/17/22 Unknown History 35 mcg/24 hr weekly transderm patch (Zafemy) Allergies Allergy/AdvReac Type Severity Reaction Status Date / Time amoxicillin (From Augmentin) AdvReac Intermediate Diarrhea Verified 10/31/24 09:10 clavulanic acid (From AdvReac Intermediate Diarrhea Verified 10/31/24 09:10 Augmentin) Review of Systems Review of Systems: All systems reviewed & are unremarkable except as noted in HPI and below Constitutional: Constitutional: Reports no additional constitutional complaints, Reports chills, Reports headache(s) and Reports lethargy ENT: Reports system reviewed and no additional complaints, except as documented, Reports facial pain, Reports headache(s), Reports nasal congestion, Reports nasal discharge, Reports sinus pain and Reports sinus pressure Cardiovascular: Cardiovascular: Reports no additional cardiovascular complaints Respiratory: Respiratory: Reports no additional respiratory complaints and Reports cough Gastrointestinal: Gastrointestinal: Reports no additional gastrointestinal complaints [facility] Past Medical History Medical History (Updated 10/31/24 @ 09:47 by Eri Corcoran APRN) Patient denies medical problems Surgical History Surgical History History of laparoscopic appendectomy 10/29/[address] Eng No significant past surgical history Family History Family History Grandparent Diabetes mellitus Mother Multiple sclerosis Coronary artery disease Social History Social History (Reviewed 10/31/24 @ 09:58 by WILLIAN Koch Smoking status: Never smoker Second hand tobacco smoke exposure: Yes Alcohol intake: never Substance use: never Lack of Transportation: No Lack of Food: Never True Current Housing: I Have Housing Concerned About Future Housing: No Difficulty Paying Gas/Electric Bills: No Difficulty Paying for Meds: No Currently Unemployed: No Education: High School Diploma/GED Difficulty w/ Childcare or Family Care: No Gender identity (if verbalized by the patient): Female Spiritual care concerns: No Comments At the time of my signature, I reviewed and agree with the nursing past medical, surgical, social, and family history. There is no relevant family history pertinent to the patient complaint. Exam Const: General: cooperative, no acute distress, alert and awake Orientation/consciousness: oriented to person, oriented to place and oriented to time HENMT: Head: normal to inspection Ears: TM abnormal dull bilateral Face/Nose/Sinus: sinus tenderness Mouth: Yes moist mucous membranes Throat: posterior oropharynx abnormal erythema and postnasal drainage Resp: Effort & Inspection: normal respiratory effort and able to speak in complete sentences Auscultation: clear to auscultation bilaterally, no crackles, no rales, no rhonchi and no wheezes Cardio: Palpation: normal PMI Rate: regular rate Rhythm: regular rhythm Heart sounds: S1 normal heart sound present and S2 normal heart sound present Neuro: General: oriented to person, oriented to place and oriented to time Cranial nerves: Yes CN's II-XII intact bilaterally Psych: Appearance: grossly normal Thought process: Normal thought process present Insight: Good insight present (Psych) Judgement: Good judgement present (Psych) Course Course Level of Care: Express Care Visit Vital Signs Vital signs: Vital Signs Temperature 98.6 F 10/31/24 09:20 Pulse Rate 104 H 10/31/24 09:20 Respiratory Rate 16 10/31/24 09:20 Blood Pressure 118/65 10/31/24 09:20 Pulse Oximetry 99 10/31/24 09:20 Oxygen Delivery Room Air 10/31/24 09:20 Temperature 98.6 F 10/31/24 09:20 Pulse Rate 104 H 10/31/24 09:20 Respiratory Rate 16 10/31/24 09:20 Blood Pressure 118/65 10/31/24 09:20 Pulse Oximetry 99 10/31/24 09:20 Oxygen Delivery Room Air 10/31/24 09:20 Reviewed MDM - URI/Sore Throat MDM Narrative Medical decision making narrative: history and exam consistent with sinusitis. Patient nontoxic appearing, stable for discharge home on p.o. antibiotic therapy with steroid burst. Discharge instructions reviewed with patient, as well as provided in writing per nursing staff. The instructions also include specific and strict return/GO TO THE ER as well as f/u information. All questions have been answered, and the patient deny any further questions with discharge and discharge plan. Some parts of this dictation were generated by voice recognition software and may contain typographical and/or grammatical inaccuracies. Differential Diagnosis Differential diagnosis: Likely upper respiratory infection, otitis media, sinusitis and pharyngitis Medical Records Attestation: I reviewed the patient's medical records. Discharge Plan Discharge Clinical Impression: Sinusitis Qualifiers: Sinusitis location: frontal Chronicity: acute Recurrence: not specified as recurrent Qualified Code(s): J01.10 - Acute frontal sinusitis, unspecified Patient Disposition: Home, Self-Care Condition: Stable Instructions: Antibiotic Form, Sinusitis (ED) Additional Instructions: Take medications as prescribed. Follow-up with primary care provider. Emergency department for new or worse symptoms Patient Language: Occitan Prescriptions: New doxycycline hyclate 100 mg capsule 100 mg PO BID Qty: 14 0RF prednisone 50 mg tablet 50 mg PO DAILY Qty: 5 0RF No Action Zafemy 150-35 mcg/24 hr patch weekly 1 patch transdermal WEEKLY Rx Instructions: apply once weekly for 3 weeks of a 4-week cycle Follow-up/Referrals: Santy,Ana Littlejohn MD [Primary Care Provider] - Stand Alone Forms: Work/School Release IP Time of Disposition: 09:48
--- OUTSIDE RECORDS SUMMARY | 2024-10-31 09:34 | XMS_ITS | Clinical Summary ---
Author Organization [facility] Address [address] [place] [address] Care Team Providers Care Lace Inspector Name Role Phone Abby Valdez MD Primary Care Provider Source Comments [facility],non-owned Affiliates and Associated Physician Practices is amultiple site organization consisting of ambulatory clinics and hospital sitesin [place], [place], [place] and [place]. This disclosure is being madepursuant to the Care Everywhere program and may not contain all information available regarding this patient. Last updated 18.[facility] Allergies Active Allergy Reactions Criticality Noted Date Comments Augmentin Diarrhea Medium 12/29/2015 Medications Be aware that medications may not be up to date on this document. Always verify current medications with the patient. 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 Social History Tobacco Use Types Packs/Day Years Used Date Smoking Tobacco: Never Assessed Sex and Gender Information Value Date Recorded Sex Assigned at Not on file Gender Identity Not on file Sexual Orientation Not on file Last Filed Vital Signs Vital Sign Reading Time Taken Comments Blood Pressure - - Pulse - - Temperature - - Respiratory Rate - - Oxygen Saturation - - Inhaled Oxygen Concentration - - Weight 63.8 kg (140 lb 10.5 oz) 12/29/2015 8:23 AM CDT Height 158.8 cm (5' 2.5 ) 12/29/2015 8:23 AM CDT Body Mass Index 25.32 12/29/2015 8:23 AM CDT Plan of Treatment Health Maintenance Due Date Last Done Comments PAP SMEAR 2001 HIV SCREENING 2016 HPV VACCINE (1 - 3-dose series) 2016 CHLAMYDIA/GONORRHEA SCREENING 2017 MENINGOCOCCAL (Group B) VACC INE (1 of 2 - Standard) 2017 HEPATITIS C SCREENING 04/07/2019 DTAP/TDAP/TD VACCINES (1 - Tdap) 2020 HEPATITIS B VACCINE (1 of 3 - 19+ 3-dose series) 2020 COVID-19 VACCINE (1 - 2023-2 5 season) 2024 INFLUENZA VACCINE (#1) 2024 DEPRESSION SCREENING 10/03/2024 ZOSTER VACCINE (1 of 2) 2051 HIB VACCINE Aged Out No longer eligi ble based on patient's age to complete this topic MENINGOCOCCAL VACCINE Aged Out No long noel eligible based on patient's age to complete this topic PNEUMOCOCCAL VACCINE Aged Out No long er eligible based on patient's age to complete this topic Care Teams Lace Inspector Relationship Specialty Start Date End Date Abby Valdez MD [address] [place] [address] PCP - General Pediatrics 12/25/15
--- OUTSIDE RECORDS SUMMARY | 2024-10-31 09:34 | XMS_ITS | Referral Summary ---
Author Organization [facility] Address [address] [place] [address] Care Team Providers Care Sealer Aircraft Name Role Phone Abby Valdez MD Primary Care Provider Source Comments [facility],non-owned Affiliates and Associated Physician Practices is amultiple site organization consisting of ambulatory clinics and hospital sitesin [place], [place], [place] and [place]. This disclosure is being madepursuant to the Care Everywhere program and may not contain all information available regarding this patient. Last updated 18.[facility] Allergies Active Allergy Reactions Criticality Noted [...] 12/29/2015 8:23 AM CDT Plan of Treatment Not on file Care Teams Sealer Aircraft Relationship Specialty Start Date End Date Abby Valdez MD [address] [place] [address] PCP - General Pediatrics 12/25/15
--- OUTSIDE RECORDS SUMMARY | 2024-10-31 09:34 | XMS_ITS | Patient Health Summary ---
Author Organization [facility] Address [address] [place] [address] Care Team Providers Care President And Chief Executive Officer Name Role Phone Abby Valdez MD Primary Care Provider Note from [facility],non-owned Affiliates and Associated Physician Practices is amultiple site organization consisting of ambulatory clinics and hospital sitesin [place], [place], [place] and [place]. This disclosure is being madepursuant to the Care Everywhere program and may not contain all information available regarding this patient. Last updated 18.[facility] Allergies * Augmentin(Diarrhea) -Medium Criticality Medications Be aware that medications may not [...] Mass Index 25.32 12/29/2015 8:23 AM CDT Procedures * HCG URINE QUALITATIVE - POCT (IP) [facility](Performed 06/24/2017) * HCG URINE QUALITATIVE - POCT (IP) [facility](Performed 05/19/2017) Results * HCG URINE QUALITATIVE - POCT (IP) [facility] (06/24/2017 4:03 PM CDT) Only the most recent of2 resultswithin the time period is included. Test Urine Negative [facility] Urine specimen (specimen) 06/24/2017 4:03 PM CDT Leyla Durham MD LAB - POINT OF CAR E ORDERABLES [facility] Care Teams President And Chief Executive Officer Relationship Specialty Start Date End Date Abby Valdez MD [address] [place] [id number] PCP - General Pediatrics 12/25/15
--- OUTSIDE RECORDS SUMMARY | 2024-10-31 09:34 | XMS_ITS | Clinical Summary ---
Author Organization [facility] Address [address] [place] [address]. [place] [address] [place] [address] Care Team Providers Care Mental Hygiene Consultant Name Role Phone BaumNoelle Tra STOVER Primary Care Provider [phone]- [phone] Allergies No known active allergies Medications Cholecalciferol (VITAMIN D3 GUMMIES ADULT) 25 MCG (1000 UT) Chew Tab Chew 1 Units by mouth daily. Active Ascorbic Acid (VITAMIN C GUMMIES OR) Take by mouth 2 (two) times daily. Active ZAFEMY 150-35 MCG/24HR packet APPLY 1 PATCH TOPICALLY ONCE A WEEK FOR 21 DAYS 3 Active spironolactone (ALDACTONE) 50 MG tabletIndicatio ns:Acne vulgaris Take 1 tablet (50 mg total) by mouth daily. 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 Immunizations Name Administration Dates Next Due Dtap (Acel-Immune) 05/04/2006, 2,2001,2001, HPV4 (Gardasil) 08/01/2013,04/02/2013,01/29/2013 Hepatitis A (Havrix [address]) 04/24/2012, 011 Hepatitis B Pediatric 2001,2001,04/02 Hib 04/13/2002,2001,2001 ,2001 MMR (MMRII) 05/04/2006,04/13/2002 Meningococcal (Menactra) 06/20/2018,05/22/2012 Polio IPV (Ipol) 05/04/2006,2001,,2001 Tdap (Adacel) 05/22/2012,08/09/2011 Varicella (Varivax) 08/09/2011,11/07/2002 Family History Medical History Relation Comments Early Mother Heart Disease Mother Multiple Sclerosis Mother Diabetes Paternal Grandfather Relation Status Comments Father Alive Mother Paternal Grandfather Social History Tobacco Use Types Packs/Day Years Used Date Smoking Tobacco: Never Smokeless Tobacco: Never Tobacco Cessation:Counseling Given: No Alcohol Use Standard Drinks/Week Comments Yes 1 (1 standard drink = 0.6 oz pur e alcohol) AUDIT-C Answer Date Recorded Q1: How often do you have a drink containing alc ohol? Never 07/22/2020 Average Number of Drinks Not on file 020 Frequency of Binge Drinking Not on file 07/04 PHQ-2 Answer Date Recorded Patient Health Questionnaire-2 Score 0 01/17/2023 Comments No Sex and Gender Information Value Date Recorded Sex Assigned at Not on file Legal Sex Female 4:40 PM CDT Gender Identity Not on file Sexual Orientation Not on file Last Filed Vital Signs Vital Sign Reading Time Taken Comments Blood Pressure 134/80 07/10/2024 4:24 PM CDT Pulse 92 07/10/2024 4:24 PM CDT Temperature 36.4 ??C (97.6 ??F) 07/10/2024 4:24 PM CD T Respiratory Rate 20 07/10/2024 4:24 PM CDT Oxygen Saturation 98% 07/10/2024 4:24 PM CDT Inhaled Oxygen Concentration - - Weight 79.6 kg (175 lb 6.4 oz) 07/10/2024 4:24 P M CDT Height 158.8 cm (5' 2.5 ) 07/10/2024 4:24 PM CDT Body Mass Index 31.57 07/10/2024 4:24 PM CDT Plan of Treatment Upcoming Encounters Date Type Department Care Team (Late st Contact Info) Description 11/16/2024 8:40 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 Office Visit [facility] Family [place] [address] Noelle Baum, NAIL ARTIST [id number] [facility] [address] [place] [address] Health Maintenance Due Date Last Done Comments Meningococcal B Vaccine (1 of 2 - Standard) 2017 DTaP, Tdap and Td Vaccines (8 - Td or Tdap) 05/22/2022 05/22/2012, 08/09/2011, 05/04/2006, Additional history exists PHQ-2 (Physician [place]) 01/18/2024 01/17/2023 COVID-19 Vaccine ( season) 2024 Influenza Adult (#1) 2024 PHQ-2 (Physician [place]) 10/03/2024 01/17/2023 Annual Physical 07/10/2025 07/10/2024, 12/31/2022 Cervical Cancer Screening Pap Smear (Age 21 to 29) Every 3 Years 08/24/2025 08/24/2022 Cervical Cancer Screening 08/24/2025 Hepatitis B Vaccines Completed 2001, 2001, 2001 HPV Vaccines Completed 08/01/2013, 10/2012, 01/29/2013 Meningococcal Vaccine Completed 06/20/2018, 012 Hepatitis C Completed 04/30/2021 Pneumococcal Vaccine: Pediatrics (0 to 5 Years) and At-Risk Patients (6 to 64 Years) Aged Out No longer eligible based on patient's age to complete this topic RSV Immunizations Under 20 Months Aged Out No longer eligible based on patient's age to complete this topic Procedures Procedure Name Priority Date/Time Associated Diagnosis Comments OUTSIDE CYTOPATH CERV/VAG INTERPRET (PAP) 08/24/2022 HEPATITIS C ANTIBODY Routine 04/30/2021 9:42 AM CDT from Last 3 Months or Most Recently Relevant to Health Maintenance Results * PAP SMEAR WITH HPV (08/24/2022) 08/24/2022 [facility] Scanned SCANNING Final Resu lt * HEPATITIS C ANTIBODY (04/30/2021 9:42 AM CDT) HEPATITIS C AB NON-REACTI VE NON-REACTI VE 05/04/2021 11:17 AM CDT [facility] 04/30/2021 9:42 AM CDT us Ana Madera MD LABORATORY Final Result [facility] [address] [place] [address], from Last 3 Months or Most Recently Relevant to Health Maintenance Insurance [facility] [address] Care Teams Mental Hygiene Consultant Relationship Specialty Start Date End Date Noelle Baum APRN [id number] [facility] [address] [place] [address] PCP - General NURSE PRACTITIONER 12/23/22
--- OUTSIDE RECORDS SUMMARY | 2024-10-31 09:34 | XMS_ITS | Encounter Summary ---
Author Organization [facility] Address [address] [place] [address]. [place], [place] [address] [place] [address] Care Team Providers Care Loading Dock Hand Name Role Phone Ana Madera MD Primary Care Provider [phone] Noelle Baum APRN Primary Care Provider [phone]- [phone] Encounter Details Date Type Department Care Team (Late st Contact Info) Description 09/29/2021 [employer] Message Enc [facility] Medical [facility] Family & Internal Medicine [address] [address] [employer] Provider Echo Results Social History Tobacco Use Types Packs/Day Years Used Date Smoking Tobacco: Never Smokeless Tobacco: Never Alcohol Use Standard Drinks/Week Comments Never 0 (1 standard drink = 0.6 oz pur e alcohol) AUDIT-C Answer Date Recorded Q1: How often do you have a drink containing alc ohol? Never 07/22/2020 Average Number of Drinks Not on file 020 Frequency of Binge Drinking Not on file 07/04 PHQ-2 Answer Date Recorded PHQ-2 Score - If the patient scores above 3, please move on to questions 3-9 4 09/07/2021 Comments No Sex and Gender Information Value Date Recorded Sex Assigned at Not on file Legal Sex Female 4:40 PM CDT Gender Identity Not on file Sexual Orientation Not on file COVID-19 Exposure Response Date Recorded In the last month, have you been in contact with someone who was confirmed or suspected to have Coronavirus / COVID-19? No / Unsure 09/07/2021 11:30 AM CONVEYOR FEEDER documented as of this encounter Plan of Treatment Upcoming Encounters Date Type Department Care Team (Late st Contact Info) Description 11/16/2024 8:40 AM CONVEYOR FEEDER Office Visit [facility] Family & Internal Medicine - [place] [address] [place] [address] Noelle Baum APRN [id number] [phone] documented as of this encounter Visit Diagnoses Not on filedocumented in this encounter Additional Health Concerns Assessment Noted Time PHQ-9 Depression Total Score: 7 09/07/20 21 11:41 AM CONVEYOR FEEDER documented as of this encounter Care Teams Loading Dock Hand Relationship Specialty Start Date End Date Ana Madera MD PCP - General INTERNAL MEDICINE 07/22/20 12/22/22 Noelle Baum APRN [id number] [address] PCP - General NURSE PRACTITIONER 12/23/22 documented as of this encounter
== END 2024-10-31 09:50 | disposition home or self-care (01) ==
PROVIDERS: Emergency Provider Nurse Practitioner Family; PCP Internal Medicine
DX: J01.10 Acute frontal sinusitis, unspecified (principal)
CPT/HCPCS: 99213; G0463